=== PATIENT | female | born 1990 | race Caucasian/White ===

== ENCOUNTER 2018-12-15 21:11 | Observation (INO) | payer OTHER ==
[~2018-12-15] VITALS: Ht 177.8 cm; Wt 102.5 kg
[2018-12-15 21:48] VITALS: BP 124/72
[2018-12-15] MEDS ORDERED: PNV11TAB PO (21:51)
[2018-12-15] MEDS ORDERED: INDO50 VG ×2 (21:53→21:56)
[2018-12-15] MEDS ORDERED: [UNRECOGNIZED DRUG - CODE] PO (21:54)
[2018-12-16 01:18] LABS: APPEARANCE,URINE CLEAR (CLEAR); BILIRUBIN,URINE NEGATIVE (NEGATIVE); GLUCOSE, URINE (UA) NEGATIVE (NEGATIVE); KETONES,URINE 40 mg/dL (NEGATIVE); LEUKOCYTE ESTERASE ,URINE NEGATIVE (NEGATIVE); NITRATE,URINE NEGATIVE (NEGATIVE); OCCULT BLOOD,URINE SMALL (NEGATIVE); PROTEIN,URINE NEGATIVE (NEGATIVE); UROBILINOGEN,URINE 0.2 mg/dL (<=1.0)
[2018-12-16 01:29] LABS: BACTERIA,URINE None Seen /HPF (None Seen); SQUAMOUS EPITHELIAL CELL,UR Rare /LPF (None Seen); WBC,URINE 0-2 /HPF (0-5)
[2018-12-16] MEDS: RINGERS SOLUTION,LACTATED 1,000 ML IV SCH (03:44)
[2018-12-16] MEDS ORDERED: NIFEdipine 10 MG CAPSULE PO SCH (06:30)
== END 2018-12-16 09:40 | disposition home or self-care (01) ==
LOC: 4S 21:11
PROVIDERS: ADMIT Specialist; ATTEND Specialist
DX: O62.9 Abnormality of forces of labor, unspecified (principal); Z3A.27 27 weeks gestation of pregnancy
CPT/HCPCS: 81001; 87070; 87220; G0378 ×2; J7120

== ENCOUNTER 2019-01-14 09:56 | Observation (INO) | payer OTHER ==
[~2019-01-14] VITALS: Ht 177.8 cm; Wt 99.8 kg
[~2019-01-14 09:56] MED LIST: INDO50 VG; PNV11TAB PO; [UNRECOGNIZED DRUG - CODE] PO
[2019-01-14 11:52] VITALS: BP 122/79
== END 2019-01-14 11:25 | disposition home or self-care (01) ==
LOC: 4S 09:56
PROVIDERS: ADMIT Specialist; ATTEND Specialist
DX: O99.89 Other specified diseases and conditions complicating pregnancy, childbirth and the puerperium (principal); M54.5 Low back pain; O62.9 Abnormality of forces of labor, unspecified; O24.419 Gestational diabetes mellitus in pregnancy, unspecified control; O26.893 Other specified pregnancy related conditions, third trimester; R10.9 Unspecified abdominal pain; Z3A.32 32 weeks gestation of pregnancy
CPT/HCPCS: 81002; G0378

== ENCOUNTER 2019-02-26 21:13 | Inpatient (IN) | payer OTHER ==
[~2019-02-26] VITALS: Ht 178 cm; Wt 102.3 kg
[~2019-02-26 21:13] MED LIST changes: -INDO50 VG; +INDO50CA97 VG
[2019-02-26] MEDS ORDERED: OXYTOCIN 30 UNITS/LACT RINGERS 500 ML IV ONE (21:28)
[2019-02-26] MEDS ORDERED: RINGERS SOLUTION,LACTATED 1,000 ML IV PRN (21:28)
[2019-02-26] MEDS ORDERED: METHYLERGONOVINE MALEATE 0.2 MG/ML VIAL IM PRN (21:30)
[2019-02-26] MEDS ORDERED: FentaNYL CITRATE-PF 100 MCG/2 ML VIAL IVP PRN (21:30)
[2019-02-26] MEDS ORDERED: LIDOCAINE/PF 1% 30 ML VIAL INJ PRN (21:30)
[2019-02-26] MEDS ORDERED: METOCLOPRAMIDE HCL 5 MG/ML 2 ML VIAL IVP PRN (21:30)
[2019-02-26] MEDS ORDERED: CITRIC ACID/SODIUM CITRATE 30 ML SOLUTION UDCUP PO PRN (21:30)
[2019-02-26 22:12] VITALS: BP 109/72
[2019-02-26] MEDS ORDERED: METH250T26 PO (22:14)
[2019-02-26] MEDS ORDERED: OXYTOCIN 30 UNITS/LACT RINGERS 500 ML IV PRN (22:43)
[2019-02-26 22:44] LABS: BASOPHILS % (AUTO) 0.4 % (0.0-2.0); EOSINOPHILS % (AUTO) 0.6 % (1.0-6.0); HEMATOCRIT 37.1 % (36-46); HEMOGLOBIN 12.6 g/dL (12.0-16.0); LYMPHOCYTES # (AUTO) 2.3 K/uL (1.0-4.8); LYMPHOCYTES % (AUTO) 19.8 % (22.0-44.0); MEAN CORPUSCULAR HEMOGLOBIN 30.6 pg (26.0-34.0); MEAN CORPUSCULAR HGB CONC 33.9 G/dL (31.0-37.0); MEAN CORPUSCULAR VOLUME 90 fL (80-100); MONOCYTES # (AUTO) 1.3 K/uL (0.1-1.0); MONOCYTES % (AUTO) 11.4 % (2.0-9.0); NEUTROPHILS # (AUTO) 7.8 K/uL (1.8-7.7); NEUTROPHILS % (AUTO) 67.8 % (40.0-70.0); PLATELET COUNT (AUTO) 311 K/uL (150-450); RED BLOOD CELL COUNT(AUTO) 4.11 MIL/uL (4.00-5.20); RED CELL DISTRIBUTION WIDTH 13.2 % (11.5-14.5)
[2019-02-26] MEDS: RINGERS SOLUTION,LACTATED 1,000 ML IV SCH (22:57)
[2019-02-27] MEDS: RINGERS SOLUTION,LACTATED 1,000 ML IV SCH (03:16)
[2019-02-27] MEDS ORDERED: ONDANSETRON HCL 4 MG/2 ML VIAL IVP PRN (03:45)
[2019-02-27] MEDS ORDERED: ROPIVACAINE HCL/PF 0.2% 100 ML ED PRN (03:45)
[2019-02-27] MEDS ORDERED: DiphenhydrAMINE HCL 50 MG/ML VIAL IVP PRN (03:45)
[2019-02-27] MEDS ORDERED: OXYGEN THERAPY IH SCH (08:00)
[2019-02-27] MEDS ORDERED: METHYLERGONOVINE MALEATE 0.2 MG TABLET PO PRN (08:30)
[2019-02-27] MEDS ORDERED: GLYCERIN/WITCH HAZEL LEAF 40 PADS JAR TP PRN (08:30)
[2019-02-27] MEDS ORDERED: OxyCODONE HCL/ACETAMINOPHEN 5-325 MG TABLET PO PRN ×2 (08:30)
[2019-02-27] MEDS ORDERED: LANOLIN 7 GM OINTMENT TP PRN (08:30)
[2019-02-27] MEDS ORDERED: MAGNESIUM HYDROXIDE SUSPENSION 30 ML UDCUP PO PRN (08:30)
[2019-02-27] MEDS ORDERED: BENZOCAINE 20%/MENTHOL 56 GM SPRAY CANISTER TP PRN (08:30)
[2019-02-27] MEDS ORDERED: SENNA/DOCUSATE SODIUM 8.6-50 MG TABLET PO PRN (08:30)
[2019-02-27] MEDS: IBUPROFEN 800 MG TABLET PO PRN ×2 (09:30→17:45)
[2019-02-28] MEDS: IBUPROFEN 800 MG TABLET PO PRN (00:04)
[2019-02-28 06:11] LABS: BASOPHILS % (AUTO) 0.6 % (0.0-2.0); EOSINOPHILS % (AUTO) 0.9 % (1.0-6.0); HEMATOCRIT 37.4 % (36-46); HEMOGLOBIN 12.5 g/dL (12.0-16.0); LYMPHOCYTES # (AUTO) 2.7 K/uL (1.0-4.8); LYMPHOCYTES % (AUTO) 23.3 % (22.0-44.0); MEAN CORPUSCULAR HEMOGLOBIN 30.7 pg (26.0-34.0); MEAN CORPUSCULAR HGB CONC 33.3 G/dL (31.0-37.0); MEAN CORPUSCULAR VOLUME 92 fL (80-100); MONOCYTES % (AUTO) 8.4 % (2.0-9.0); NEUTROPHILS # (AUTO) 7.7 K/uL (1.8-7.7); NEUTROPHILS % (AUTO) 66.8 % (40.0-70.0); PLATELET COUNT (AUTO)-OB 291 K/uL (150-450); RED BLOOD CELL COUNT(AUTO) 4.06 MIL/uL (4.00-5.20); RED CELL DISTRIBUTION WIDTH 13.5 % (11.5-14.5)
[2019-02-28] MEDS ORDERED: IBUP-2071 PO (10:34)
== END 2019-02-28 12:20 | disposition home or self-care (01) | DRG 806 ==
LOC: OBSVTOIN 21:13 → 4S 21:13
PROVIDERS: ADMIT Specialist; ATTEND Specialist
PROC: 3E0R3BZ Introduction of Anesthetic Agent into Spinal Canal, Percutaneous Approach (ICD-10-PCS; principal; 2019-02-27)
PROC: 10E0XZZ Delivery of Products of Conception, External Approach (ICD-10-PCS; 2019-02-27)
PROC: 00HU33Z Insertion of Infusion Device into Spinal Canal, Percutaneous Approach (ICD-10-PCS; 2019-02-27)
DX: O69.81X0 Labor and delivery complicated by cord around neck, without compression, not applicable or unspecified (principal); O10.92 Unspecified pre-existing hypertension complicating childbirth; Z37.0 Single live birth; Z3A.38 38 weeks gestation of pregnancy
CPT/HCPCS: 86850; 86900; 86901; J2590; J7120